=== PATIENT | female | born 1950 | race Caucasian/White ===

== ENCOUNTER 2016-12-24 14:00 | Emergency (ER) | payer OTHER, BC ==
[~2016-12-24] VITALS: Ht 160 cm; Wt 122.5 kg
[~2016-12-24 14:00] MED LIST: BACTRIM,SEPT1 TABLET PO; BENADRYL25 MG PO; CALCIUM 600 +1 EA12 PO; CALCIUM CARB1 TABLET PO; CALCIUM PO; CELEBREX200 MG PO; CELECOXIB200 MG PO; COZAAR50 MG PO; FEMARA2.5 MG PO; FETZIMA20 MG PO; FLEXERIL10 MG PO; IRON325 M1 PO; KLONOPIN0.5 M1 PO; KLONOPIN1 MG PO; LETROZOLE2.5 MG PO; LO-DOSE ASPIRIN81 M1 PO; LORTAB 5-325 M1 EACH PO; METHOCARBAMOL500 MG PO; NEURONTIN100 MG PO; NORVASC5 MG PO; OXAYDO5 MG PO; OXYCODONE HCL5 MG PO; PERCOCET 5/31 TABLET PO; PREDNISONE10 MG PO; PRILOSEC40 MG PO; STOOL SOFTENER100 M1 PO; TOPROL XL25 MG PO; ULTRAM50 MG PO; VITAMIN B-12500 MC5 SL; VITAMIN D1000 INTUN PO; VITAMIN D1000 UNIT PO; VITAMIN D31000 UNI2 PO; XARELTO10 MG PO
[2016-12-24 16:29] VITALS: BP 143/61
== END 2016-12-24 16:30 | disposition home or self-care (01) ==
LOC: EME 14:00
DX: S80.02XA Contusion of left knee, initial encounter (principal); S80.12XA Contusion of left lower leg, initial encounter; W19.XXXA Unspecified fall, initial encounter; Z96.651 Presence of right artificial knee joint; Z96.649 Presence of unspecified artificial hip joint
CPT/HCPCS: 73564; 99281; 99283